=== PATIENT | male | born 1990 | race Caucasian/White ===

== ENCOUNTER 2019-08-02 10:49 | Emergency (ER) | payer BC ==
[~2019-08-02] VITALS: Ht 177.8 cm; Wt 77.1 kg
[2019-08-02 10:49] VITALS: BP_SYST 124
--- NOTE | 2019-08-02 10:49 | NUR ---
Patient to ER bed 8 to gown for evaluation. Side rails up. Report given to STAS Martinez.
[2019-08-02] MEDS ORDERED: IBUP-23 PO (11:09)
[2019-08-02] MEDS ORDERED: NYQUIL PO (11:09)
[2019-08-02] MEDS ORDERED: GUAI600T45 PO (11:09)
[2019-08-02] MEDS ORDERED: FLUT16SP16 INH (11:10)
--- NOTE | 2019-08-02 11:13 | NUR ---
PATIENT PRESENTS TO THE ER WITH HX OF COUGH WITH FEVER, FRONTAL HEADACHE AND RUNNY NOSE FOR ONE WEEK; NO TRAUMA, NO OTHER REMARKABLE S/S
[2019-08-02 11:29] VITALS: BP_SYST 112
--- NOTE | 2019-08-02 11:38 | NUR ---
Patient given written and verbal discharge instructions and verbalizes understanding. ER MD discussed with patient the results and treatment provided. Patient in stable condition. ID arm band removed.. Rx of robitussin/tylenol given. Patient educated on pain management and to follow up with PMD. Pain Scale . Opportunity for questions provided
== END 2019-08-02 11:29 | disposition home or self-care (01) ==
LOC: SED 10:49
DX: J20.9 Acute bronchitis, unspecified (principal); J06.9 Acute upper respiratory infection, unspecified; Z79.899 Other long term (current) drug therapy
CPT/HCPCS: 36415; 86710; 99283

== ENCOUNTER 2021-01-21 17:13 | Emergency (ER) | payer BC, OTHER ==
[~2021-01-21] VITALS: Ht 177.8 cm; Wt 90.7 kg
[~2021-01-21 17:13] MED LIST: FLUT16SP16 INH; GUAI600T45 PO; IBUP-23 PO; NYQUIL PO
[2021-01-21] MEDS ORDERED: LORazepam 2 MG/ML VIAL IM ONE (17:15)
--- NOTE | 2021-01-21 17:20 | NUR ---
Patient triaged and placed in bed 1. VSS awaiting available bed, and MD notified of need for MSE.
--- NOTE | 2021-01-21 17:20 | NUR ---
Placed in room 1 . Placed on property assessment monitor, blood pressure machine and pulse oximeter. To gown for exam. Side rails up.
--- NOTE | 2021-01-21 17:22 | NUR ---
Pt came into ER with complaint of severe muscle cramping starting at approximatley 1700 today. Pt reports he had finished working and after began feeling a tingling sensation snd cramping with a sense of general weakness. Pt walked to the car and was driven to hospital by his fiance. Pt needed assistance out of the car due to muscle cramping and weakness. Pt reports he took a pre workout before working out. Pt is AAOX4 speaking full sentences, Pt is endorsing sense of anxiety. PERRLA noted breathing even and unlabored Lungs CTA bilaterally. Blood glucose is 114 upon finger stick. Pt has equal engagement director strength bilaterally radial pulses 2+ bilaterally pt is able to push and pull feet. Pt is able to lift arms and legs. GCS 15. VSS attached to monitor in [facility]. Will continue to monitor.
--- NOTE | 2021-01-21 17:25 | NUR ---
ER at bedside examining patient.
[2021-01-21 17:41] VITALS: BP_SYST 145
--- NOTE | 2021-01-21 17:45 | NUR ---
Pt denies pain or SOB. Pt given iced water. Pt has no loss of sensation in extremeties and no loss of vision or visual disturbances. VSS.
--- NOTE | 2021-01-21 18:01 | NUR ---
at bedside speaking with pt.
[2021-01-21 18:14] VITALS: BP_SYST 110
--- NOTE | 2021-01-21 18:15 | NUR ---
Patient given written and verbal discharge instructions and verbalizes understanding. ER MD discussed with patient the results and treatment provided. Patient in stable condition. ID arm band removed. Patient educated on pain management and to follow up with PMD. Pain Scale 0/10. Opportunity for questions provided and answered. Medication side effect fact sheet provided.
== END 2021-01-21 18:15 | disposition home or self-care (01) ==
LOC: SED 17:13
DX: R06.4 Hyperventilation (principal); Z79.899 Other long term (current) drug therapy
CPT/HCPCS: 96372; 99283; J2060